=== PATIENT | male | born 2000 | race Two or more races ===

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

== ENCOUNTER 2020-03-11 18:29 | Emergency (ER) | payer OTHER ==
[~2020-03-11] VITALS: Ht 167.6 cm; Wt 71.7 kg
[2020-03-11 18:34] VITALS: BP 128/76
--- NOTE | 2020-03-11 19:08 | NUR ---
PT HERE WITH C/O CHEST TIGHTNESS WHILE BREATHING AND SOB X 5 DAYS. PT DENIES FEVERS Addendum: 03/11/20 at 1909 by [email or web address] PT DOES REPORT COUGH FOR 4 DAYS. PT WAS TESTED FOR COVID TODAY.
[2020-03-11 19:19] LABS: BASOPHILS # (AUTO) 0.03 x10^3/uL (0-0.3); BASOPHILS % (AUTO) 0 % (0-1); EOSINOPHILS # (AUTO) 0.06 x10^3/uL (0-0.8); EOSINOPHILS % (AUTO) 1 % (1-7); LYMPHOCYTES # (AUTO) 3.97 x10^3/uL (1-6.1); LYMPHOCYTES % (AUTO) 44 % (22-44); MD NO; MEAN CORPUSCULAR HEMOGLOBIN 31.6 pg (27.5-34.5); MEAN CORPUSCULAR HGB CONC 32.9 g/dL (33.2-36.2); MEAN CORPUSCULAR VOLUME 96.2 fL (81-97); MONOCYTES # (AUTO) 0.86 x10^3/uL (0-1.4); MONOCYTES % (AUTO) 10 % (2-9); NEUTROPHILS # (AUTO) 4.16 x10^3/uL (1.8-8.0); NEUTROPHILS % (AUTO) 46 % (42-75); PLATELET COUNT 245 x10^3/uL (130-400); RED BLOOD COUNT 5.17 x10^6/uL (4.38-5.82); RED CELL DISTRIBUTION WIDTH 12.5 % (9.4-14.8)
[2020-03-11 19:28] LABS: ALBUMIN 4.4 g/dL (3.4-5.0); ANION GAP 5 mmol/L (5-15); CALCIUM 9.5 mg/dL (8.5-10.1); CHLORIDE 105 mmol/L (98-107)
[2020-03-11 19:33] LABS: CREATININE 1.31 mg/dL (0.7-1.3); TROPONIN I < 0.015 ng/mL (0.000-0.045)
== END 2020-03-11 20:32 | disposition home or self-care (01) ==
LOC: ED 20:17
DX: R07.89 Other chest pain (principal); R94.31 Abnormal electrocardiogram [ECG] [EKG]
CPT/HCPCS: 36415; 71045; 80048; 82040; 84484; 85025; 85379; 93005; 99285

== ENCOUNTER 2020-08-13 06:53 | Emergency (ER) | payer OTHER ==
[~2020-08-13] VITALS: Ht 170.2 cm; Wt 77.6 kg
[2020-08-13 06:56] VITALS: BP 138/71
[2020-08-13] MEDS ORDERED: LIDOCAINE-MPF 1%, 5ML ONE ×2 (07:17)
[2020-08-13] MEDS ORDERED: LIDOCAINE-MPF 1%, 5ML INFIL ONE (07:30)
[2020-08-13] MEDS ORDERED: DIPH,PERTUSS(ACELL),TET VAC/PF 0.5 ML IM-VACC ONE ×2 (07:30→08:19)
[2020-08-13] MEDS ORDERED: NEOSPORIN OINT. PKT 1 PACKET ONE (08:30)
--- NOTE | 2020-08-13 08:45 | NUR ---
Patient given discharge instructions and they have confirmed that they understand the instructions. Patient ambulatory with steady gait.
== END 2020-08-13 08:44 | disposition home or self-care (01) ==
LOC: ED 08:11
DX: S51.811A Laceration without foreign body of right forearm, initial encounter (principal); S61.411A Laceration without foreign body of right hand, initial encounter; X58.XXXA Exposure to other specified factors, initial encounter; Y93.89 Activity, other specified; Y92.098 Other place in other non-institutional residence as the place of occurrence of the external cause; Y99.8 Other external cause status
CPT/HCPCS: 12042; 90471; 90715; 99284